=== PATIENT | male | born 1945 | race Caucasian/White ===

== ENCOUNTER 2016-07-28 12:17 | Emergency (ER) | payer MEDICARE, BC ==
[~2016-07-28] VITALS: Ht 193 cm; Wt 93.0 kg
[~2016-07-28 12:17] MED LIST: ASPI81TA82 PO; ATOR20TA PO; CALA240T PO; LEVO.025 PO; LOSA50TA PO; METH500T3 PO; TAB-TAB PO
[2016-07-28 12:21] VITALS: BP 149/85; PULSE 85; RESP 15; TEMP 98.1; O2SAT 97
[2016-07-28] MEDS ORDERED: LEVO25TA4 PO (13:26)
[2016-07-28] MEDS ORDERED: MULT1TAB84 PO (13:26)
[2016-07-28] MEDS ORDERED: ASPI81CH37 CHEW (13:26)
[2016-07-28] MEDS ORDERED: ATOR40TA16 PO (13:26)
[2016-07-28] MEDS ORDERED: LOSA50TA PO (13:26)
--- NOTE | 2016-07-28 13:28 | PD ---
HPI Chief Complaint: Pain: Acute or Chronic Time Seen by Provider: 13:24 Travel History International Travel<30 days: No Contact w/Intl Traveler<30days: No Traveled to known affect area: No History of Present Illness HPI 71-year-old male that presents to the ED for evaluation of right-sided chest pain that he's had for 2 weeks. Per patient he recently traveled to [place] for vacation and they came back here in the past couple days. Per patient the pain started in [place] when he was doing some lifting possibly a cooler. Per patient he is not sure if this caused the pain as he didn't really have any pain during that time until later. He did trouble all the way to [place] and back. She states that the pain is worse with deep breaths as well as with movement. Per patient the pain is burning. He does have a history of lung cancer to the right side with neurosurgery. This was 17 years ago. He takes aspirin. No blood thinners. Pain does not radiate. No rashes. No allergies to medication. Denies any abdominal pain. No nausea or vomiting. No fevers chills or sweats. No cough or runny nose. No injuries that he can think of other than again the heavy lifting from moving. Pain currently is 2 out of 10. Pain somewhat reproducible with touch. PFSH Past Medical History Hx Anticoagulant Therapy: No Arthritis: No Asthma: No Autoimmune Disease: No Blood Disorders: No Anxiety: No Depression: No Heart Rhythm Problems: No Cancer: Yes Cardiovascular Problems: No High Cholesterol: No Chemotherapy: Yes ([place]) Chest Pain: No Congestive Heart Failure: No COPD: No Cerebrovascular Accident: No Diabetes: No Diminished Hearing: No Endocrine: No GERD: No Glaucoma: No Headaches: No Hepatitis: No Hiatal Hernia: No Hypertension: Yes Musculoskeletal: No Neurologic: Yes (BRAIN TUMOR) Psychiatric: No Respiratory: Yes (Lung CA) Myocardial Infarction: No Radiation Therapy: Yes (1999) Seizures: No Sickle Cell Disease: No Sleep Apnea: No Thyroid Disease: No Ulcer: No ?: Not Past Surgical History Abdominal Surgery: Yes (APPENDECTOMY) Cardiac Surgery: Yes (ANGIOPLASTY) Ear Surgery: No Endocrine Surgery: No Eye Surgery: No Genitourinary Surgery: No Gynecologic Surgery: No Joint Replacement: Yes (bilat hips) Oral Surgery: No Pacemaker: No Thoracic Surgery: No Other Surgery: Yes Social History Alcohol Use: Yes Tobacco Use: No Substance Use: No Allergies-Medications (Allergen,Severity, Reaction): Coded Allergies: No Known Allergies (Verified , 07/28/16) Reported Meds & Prescriptions Reported Meds & Active Scripts Active Reported Multivitamin Adults (Multiple Vitamins W/ Minerals) 1 Tab 1 Tab PO DAILY Levothyroxine (Levothyroxine Sodium) 25 Mcg Tab 25 Mcg PO DAILY Atorvastatin (Atorvastatin Calcium) 40 Mg Tab 40 Mg PO HS Losartan (Losartan Potassium) 50 Mg Tab 50 Mg PO DAILY Aspirin Low Dose (Aspirin) 81 Mg Chew 81 Mg CHEW DAILY Review of Systems Except as stated in HPI: all other systems reviewed are Neg Physical Exam Narrative GENERAL: SKIN: Warm and dry. HEAD: Atraumatic. Normocephalic. EYES: Pupils equal and round. No scleral icterus. No injection or drainage. ENT: No nasal bleeding or discharge. Mucous membranes pink and moist. Tongue is midline. No uvula deviation. NECK: Trachea midline. No JVD. CARDIOVASCULAR: Regular rate and rhythm. No murmurs, S3, S4. RESPIRATORY: No accessory muscle use. Clear to auscultation. Breath sounds equal bilaterally. GASTROINTESTINAL: Abdomen soft, non-tender, nondistended. Hepatic and splenic margins not palpable. MUSCULOSKELETAL: Extremities without clubbing, cyanosis, or edema. No obvious deformities. Full range of motion of the upper and lower extremities bilaterally. Some pain is reproducible with touch on the right chest. 2+ pulses bilaterally. NEUROLOGICAL: Awake and alert. No obvious cranial nerve deficits. Motor grossly within normal limits. Five out of 5 muscle strength in the arms and legs. Normal speech. PSYCHIATRIC: Appropriate mood and affect; insight and judgment normal. Data Data Last Documented VS Vital Signs Date Time Temp Pulse Resp B/P Pulse Ox O2 Delivery O2 Flow Rate FiO2 07/28/16 13:27 85 07/28/16 12:21 98.1 15 149/85 97 Orders Electrocardiogram (07/28/16 13:16) Complete Blood Count With Diff (07/28/16 13:16) Basic Metabolic Panel (Bmp) (07/28/16 13:16) Ckmb (Isoenzyme) Profile (07/28/16 13:16) Troponin I (07/28/16 13:16) Prothrombin Time / Inr (Pt) (07/28/16 13:16) Act Partial Throm Time (Ptt) (07/28/16 13:16) D-Dimer (07/28/16 13:16) Magnesium (Mg) (07/28/16 13:16) Chest, Single Ap (07/28/16 13:16) CKMB (07/28/16 13:20) CKMB% (07/28/16 13:20) Ct Pulmonary Angiogram (07/28/16 ) Iohexol 350 Inj (Omnipaque 350 Inj) (07/28/16 16:45) Labs Laboratory Tests Test 07/28/16 13:20 White Blood Count 8.6 TH/MM3 Red Blood Count 4.81 MIL/MM3 Hemoglobin 14.1 GM/DL Hematocrit 42.0 % Mean Corpuscular Volume 87.4 FL Mean Corpuscular Hemoglobin 29.4 PG Mean Corpuscular Hemoglobin 33.7 % Concent Red Cell Distribution Width 13.3 % Platelet Count 377 TH/MM3 Mean Platelet Volume 7.3 FL Neutrophils (%) (Auto) 82.1 % Lymphocytes (%) (Auto) 8.1 % Monocytes (%) (Auto) 8.0 % Eosinophils (%) (Auto) 1.0 % Basophils (%) (Auto) 0.8 % Neutrophils # (Auto) 7.0 TH/MM3 Lymphocytes # (Auto) 0.7 TH/MM3 Monocytes # (Auto) 0.7 TH/MM3 Eosinophils # (Auto) 0.1 TH/MM3 Basophils # (Auto) 0.1 TH/MM3 CBC Comment DIFF FINAL Differential Comment Prothrombin Time 10.7 SEC Prothromb Time International 1.0 RATIO Ratio Activated Partial 30.4 SEC Thromboplast Time D-Dimer Quantitative (PE/DVT) 0.79 MG/L FEU Sodium Level 141 MEQ/L Potassium Level 4.4 MEQ/L Chloride Level 103 MEQ/L Carbon Dioxide Level 26.4 MEQ/L Anion Gap 12 MEQ/L Blood Urea Nitrogen 15 MG/DL Creatinine 0.96 MG/DL Estimat Glomerular Filtration 77 ML/MIN Rate Random Glucose 119 MG/DL Calcium Level 9.1 MG/DL Magnesium Level 2.3 MG/DL Total Creatine Kinase 121 U/L Creatine Kinase MB 1.5 NG/ML Troponin I LESS THAN 0.02 NG/ML MDM Medical Decision Making Medical Screen Exam Complete: Yes Emergency Medical Condition: Yes Medical Record Reviewed: Yes Interpretation(s) Last Impressions Chest X-Ray 07/28/16 1316 Signed Impressions: Service Date/Time: Thursday, July 28, 2016 13:47 - CONCLUSION: 1. 2.8 cm left midlung nodule. Recommend chest CT. 2. Deformity of the right upper hemithorax with adjacent calcification may be the sequela of old trauma. Enrike Banerjee MD CT Angiography 07/28/16 0000 Signed Impressions: Service Date/Time: Thursday, July 28, 2016 16:33 - CONCLUSION: 1. There is no evidence for PE for technique. 2. Left upper lobe mass almost certainly malignant. 3. Tiny right pleural effusion and pericardial effusion. Matteo Awad MD CBC & BMP Diagram 07/28/16 13:20 EKg shows sinus rhythm with no sign of ischemia or arrhythmia read by me and attending. Troponin and CK-MB negative. D-dimer positive. Coags within normal limits. Differential Diagnosis Chest pain versus atypical chest pain versus pulmonary embolism versus costochondritis versus cardiac chest pain versus ACS Narrative Course 71-year-old male that presents to the ED for evaluation of right-sided chest pain. Patient was properly examined and was found to have signs and symptoms of unclear etiology. Patient does have unfortunately risk factors for PE secondary to recent travel in a car as well as history of cancer in that same lung in the past. ACS is less likely but cannot completely be excluded so do recommend during at least one set of troponin. Patient agrees with plan. Labs and imaging ordered. Labs and imaging show what appears to be a mass to the left side. Pleural effusion as well as a small pericardial effusion. This was discussed in my attending Dr. Duenas who was bearable findings and came and evaluated the patient agrees with plan. Patient was told the mass that could be malignant. Patient states that he has good follow-up with Dr. West. At this time recommend close follow-up with him an oncologist as he would likely require oncology workup. Patient agrees and understands. At this time patient will be discharged home with Lortab and diclofenac sodium. Patient will be sent home with all of the report from the blood work as well as the imaging done here. Patient understands that he needs to follow up as soon as possible with PCP or oncologist. See ED for any worsening symptoms. Diagnosis Primary Impression: Right-sided chest pain Additional Impression: Mass of left lung Patient Instructions: General Instructions Additional Instructions: Take medications as prescribed. Follow-up with PCP as soon as possible. See ED for any worsening symptoms. Do not drink or drive while taking pain medication. Apply ice or heat as needed for pain Med/Other Pt SpecificInfo: Prescription(s) given Scripts Diclofenac Sodium DR 75 Mg Tabdr75 Mg PO BID PRN (PAIN SCALE 1 TO 10) #20 TAB Prov:Alexey Wood MD 07/28/16 Hydrocodone-Acetaminophen (Lortab)5-325 Mg Tab1 Tab PO Q6H PRN (PAIN) #15 TAB Prov:Alexey Wood MD 07/28/16 Disposition: 01 DISCHARGE HOME Condition: Andrea Colón Jul 28, 2016 13:28
[2016-07-28 13:38] LABS: CHLORIDE 103 MEQ/L (98-107); POTASSIUM 4.4 MEQ/L (3.5-5.1); SODIUM (NA) 141 MEQ/L (136-145)
[2016-07-28 13:41] LABS: ANION GAP 12 MEQ/L (5-15); BICARBONATE 26.4 MEQ/L (21.0-32.0); BLOOD UREA NITROGEN 15 MG/DL (7-18); MAGNESIUM 2.3 MG/DL (1.5-2.5)
[2016-07-28 13:43] LABS: BASOPHIL # 0.1 TH/MM3 (0-0.2); BASOPHIL % 0.8 % (0.0-2.0); EOSINOPHIL # 0.1 TH/MM3 (0-0.4); HEMO FLAGS DIFF FINAL; LYMPH % 8.1 % (9.0-44.0); LYMPHOCYTE # 0.7 TH/MM3 (1.0-4.8); MEAN CELL VOLUME 87.4 FL (80.0-100.0); MEAN CORPUSCULAR HEMOGLOBIN 29.4 PG (27.0-34.0); MEAN CORPUSCULAR HGB CONC 33.7 % (32.0-36.0); NEUT % 82.1 % (16.0-70.0); PLATELET COUNT 377 TH/MM3 (150-450); RED BLOOD COUNT 4.81 MIL/MM3 (4.50-5.90); RED CELL DISTRIBUTION WIDTH 13.3 % (11.6-17.2); WHITE BLOOD COUNT 8.6 TH/MM3 (4.0-11.0)
[2016-07-28 13:44] LABS: GLOMERULAR FILTRATION RATE 77 ML/MIN (>89)
[2016-07-28 13:47] LABS: CREATINE KINASE 121 U/L (39-308)
[2016-07-28 13:49] LABS: APTT (PATIENT) 30.4 SEC (24.3-30.1); PROTHROMBIN TIME - PATIENT 10.7 SEC (9.8-11.6)
[2016-07-28 14:00] LABS: CKMB 1.5 NG/ML (0.5-3.6)
--- NOTE | 2016-07-28 14:39 | RADHPO ---
EXAM DATE/TIME: 07/28/2016 13:47 [facility] COMPARISON: No previous studies available for comparison. INDICATIONS : Right side chest pain for over one week MEDICAL HISTORY : Right lung cancer. SURGICAL HISTORY : None. ENCOUNTER: Initial ACUITY: 1 week PAIN SCORE: 5/10 LOCATION: Right chest FINDINGS: Single AP view of the chest. Deformity of the upper right hemithorax in the region of the lung apex. Surrounding calcification. May represent old trauma. Faint 2.8 cm nodular density in the left perihil ar midlung. No evidence of pleural effusion or pneumothorax. Cardiomediastinal silhouette within norm al limits. CONCLUSION: 1. 2.8 cm left midlung nodule. Recommend chest CT. 2. Deformity of the right upper hemithorax with adjacent calcification may be the sequela of old trau ma. Enrike Banerjee MD on July 28, 2016 at 14:35 Board Certified Radiologist. This report was verified electronically.
[2016-07-28] MEDS ORDERED: IOHEXOL 350 MG/ML 10 ML VIAL (for RAD DIAG) IV ONE (16:45)
--- NOTE | 2016-07-28 16:55 | RADHPO ---
EXAM DATE/TIME: 07/28/2016 16:33 [facility] COMPARISON: No previous studies available for comparison. INDICATIONS : Right upper chest pain. IV CONTRAST: 65 cc Omnipaque 350 (iohexol) IV RADIATION DOSE: 17.66 CTDIvol (mGy) MEDICAL HISTORY : Carcinoma, lung. Hypertension. SURGICAL HISTORY : Appendectomy. ENCOUNTER: Initial ACUITY: 2 weeks PAIN SCALE: 4/10 LOCATION: Right upper chest TECHNIQUE: Volumetric scanning of the chest was performed using a pulmonary embolism protocol MIP images were re constructed. Using automated exposure control and adjustment of the mA and/or kV according to patien t size, radiation dose was kept as low as reasonably achievable to obtain optimal diagnostic quality images. FINDINGS: There is no evidence for PE for technique. Approximate 1.6 cm spiculated mass is present in the left upper lobe almost certainly malignant. Tiny pericardial effusion is seen with maximum thickness of 1 cm. Small right pleural effusion is present. Extensive calcifications are present in the right u pper chest involving multiple ribs and right scapula with involvement of the soft tissues chronic in nature could be due to prior treatment and/or trauma. There are parenchymal changes in the right apex may be due to post radiation change if the patient has had prior radiation therapy. Coronary artery calcifications are seen typically seen with CAD and need to be evaluated clinically. CONCLUSION: 1. There is no evidence for PE for technique. 2. Left upper lobe mass almost certainly malignant. 3. Tiny right pleural effusion and pericardial effusion. Matteo Awad MD on July 28, 2016 at 16:49 Board Certified Radiologist. This report was verified electronically.
[2016-07-28] MEDS ORDERED: HYDR-3533 PO (17:13)
[2016-07-28] MEDS ORDERED: DICL75TA PO (17:13)
--- NOTE | 2016-07-29 23:08 | EKG ---
Date Performed: 07/28/2016 Time Performed: 12:43:04 PTAGE: 71 years EKG: Sinus rhythm Normal ECG PREVIOUS TRACING : 03/18/2005 09.46 Compared to prior tracing no significant change DOCTOR: Sharif Valdez Interpretating Date/Time 07/29/2016 23:06:44
== END 2016-07-28 17:23 | disposition home or self-care (01) ==
LOC: PHEFT 12:17
DX: R07.89 Other chest pain (principal); R91.8 Other nonspecific abnormal finding of lung field; J90 Pleural effusion, not elsewhere classified; I10 Essential (primary) hypertension; I31.3 Pericardial effusion (noninflammatory); Z79.82 Long term (current) use of aspirin; X50.0XXA Overexertion from strenuous movement or load, initial encounter; X50.9XXA Other and unspecified overexertion or strenuous movements or postures, initial encounter; Y93.E6 Activity, residential relocation; Y92.9 Unspecified place or not applicable; Y99.9 Unspecified external cause status; Z79.899 Other long term (current) drug therapy
CPT/HCPCS: 71010; 71275; 80048; 82550; 82552; 83735; 84484; 85025; 85379; 85610; 85730; 93005; 99285; Q9967

== ENCOUNTER 2016-08-13 07:51 | Day surgery (SDC) | payer MEDICARE, BC ==
[2016-08-13] VITALS (7 sets, daily range): BP systolic 122–165; BP diastolic 69–100; PULSE 83–115; RESP 18–20; TEMP 98.5–98.6; O2SAT 93–98
[~2016-08-13] VITALS: Ht 182.9 cm; Wt 90.9 kg
[~2016-08-13 07:51] MED LIST changes: +ASPI81CH37 CHEW; -ASPI81TA82 PO; -ATOR20TA PO; +ATOR40TA16 PO; -CALA240T PO; +DICL75TA PO; +HYDR-3533 PO; -LEVO.025 PO; +LEVO25TA4 PO; -METH500T3 PO; +MULT1TAB84 PO; -TAB-TAB PO
[2016-08-13] MEDS ORDERED: SODIUM CHLOR 0.9% 1000 ML IV SCH (08:15)
[2016-08-13] MEDS ORDERED: SODIUM CHLORIDE 0.9% FLUSH 10 ML FLUSH IV FLUSH PRN (08:15)
[2016-08-13 08:28] LABS: AUTOMATED NEUTROPHIL # 7.4 TH/MM3 (1.8-7.7); BASOPHIL # 0.1 TH/MM3 (0-0.2); BASOPHIL % 1.4 % (0.0-2.0); EOSINOPHIL # 0.1 TH/MM3 (0-0.4); EOSINOPHIL % 1.5 % (0.0-4.0); HEMATOCRIT 44.8 % (39.0-51.0); HEMO FLAGS DIFF FINAL; LYMPH % 9.2 % (9.0-44.0); LYMPHOCYTE # 0.8 TH/MM3 (1.0-4.8); MEAN CELL VOLUME 87.6 FL (80.0-100.0); MEAN CORPUSCULAR HEMOGLOBIN 29.1 PG (27.0-34.0); MEAN CORPUSCULAR HGB CONC 33.2 % (32.0-36.0); MONO % 7.4 % (0.0-8.0); NEUT % 80.5 % (16.0-70.0); PLATELET COUNT 287 TH/MM3 (150-450); RED BLOOD COUNT 5.12 MIL/MM3 (4.50-5.90); RED CELL DISTRIBUTION WIDTH 13.9 % (11.6-17.2); WHITE BLOOD COUNT 9.2 TH/MM3 (4.0-11.0)
[2016-08-13 08:39] LABS: APTT (PATIENT) 31.3 SEC (24.3-30.1); INTERNATIONAL NORMALIZED RATIO 0.9 RATIO; PROTHROMBIN TIME - PATIENT 10.4 SEC (9.8-11.6)
[2016-08-13] MEDS ORDERED: SODIUM CHLORIDE 0.9% FLUSH 10 ML FLUSH IV FLUSH SCH (09:00)
[2016-08-13] MEDS ORDERED: LIDOCAINE 1%/EPINEPHrine 1:100,000 SOLN 20 ML VIAL ONE (10:11)
[2016-08-13] MEDS ORDERED: fentaNYL CITRATE 250 MCG/5 ML AMP ONE (10:35)
[2016-08-13] MEDS ORDERED: MIDAZOLAM HCL 5 MG/5 ML VIAL ONE (10:35)
--- NOTE | 2016-08-13 12:44 | RADRPT ---
EXAM DATE/TIME: 08/13/2016 12:03 [facility] COMPARISON: No previous studies available for comparison. INDICATIONS : Evaluate for pneumothorax MEDICAL HISTORY : Carcinoma, lung. Hypertension SURGICAL HISTORY : Hip surgery ENCOUNTER: Initial ACUITY: 1 day PAIN SCORE: 0/10 LOCATION: Left chest FINDINGS: A single frontal expiratory view of the chest was performed. Left lung nodule. No pneumothorax. The cardio-mediastinal contours and bronchopulmonary markings are unremarkable for an expiratory exam . Osseous structures are intact. Right apical scarring with calcification and rib deformities. CONCLUSION: Left lung nodule. No pneumothorax. Jose Angel Funes MD on August 13, 2016 at 12:41 Board Certified Radiologist. This report was verified electronically.
--- NOTE | 2016-08-14 07:35 | RADRPT ---
EXAM DATE/TIME: 08/13/2016 10:39 [facility] COMPARISON: No previous studies available for comparison. INDICATIONS : Left lung nodule SEDATION TIME: 30 minutes BIOPSY SITE: Left lung MEDICATION(S): 1.) 4 mg midazolam (Versed) IV 2.) 200 mcg fentanyl (Sublimaze) IV DEVICE(S): 1.) 18 gauge Mahan blunt needle 2.) 20 gauge Temno core biopsy needle MEDICAL HISTORY : Carcinoma, lung. SURGICAL HISTORY : Appendectomy. ENCOUNTER: Initial ACUITY: 1 day PAIN SCORE: 0/10 LOCATION: Left chest A total of one core specimen(s) were obtained and sent to the laboratory for pathologic evaluation. PROCEDURE: 1. CT guided lung biopsy. 2. Conscious sedation with continuous EKG and oximetry monitoring. 3. EKG and oximetry remained stable throughout the procedure. Prior to the procedure informed consent was obtained. Any appropriate prior imaging studies were rev iewed. Using automated exposure control and adjustment of the mA and/or kV according to patient size, radiation dose was kept as low as reasonably achievable to obtain optimal diagnostic quality images. The site was prepped in a sterile fashion. Full sterile technique was used, including cap, mask, kishan rile gloves and gown and a large sterile sheet. Hand hygiene and 2% chlorhexidine and/or betadine/al cohol prep was utilized per protocol for cutaneous antisepsis. The skin and subcutaneous tissues wer e infiltrated with local anesthetic solution. With CT guidance the previously identified target was localized. Biopsy was performed using the presc ribed needle as above. Adequate hemostasis was obtained with compression at the puncture site. Follow-up CT scan reveals no pneumothorax. Conscious sedation was performed with the prescribed dosages and duration as above in the presence of an independent trained radiology nurse to assist in the monitoring of the patient. EKG and oximetry remained stable throughout the procedure. The patient tolerated the procedure well and there were no complications. The patient was sent to Radiology Outpatient Unit in stable condition. CONCLUSION: Uncomplicated CT guided biopsy of left lung nodule. Patient was also scheduled for a right-sided thor acentesis which will be rescheduled next week under ultrasound guidance. Jose Angel Funes MD on August 14, 2016 at 7:33 Board Certified Radiologist. This report was verified electronically.
== END 2016-08-13 14:30 | disposition home or self-care (01) ==
LOC: HRAD 07:51 → HRIP 07:52 → HRAD 14:30
PROVIDERS: ATTEND Internal Medicine Hematology & Oncology
DX: C34.92 Malignant neoplasm of unspecified part of left bronchus or lung (principal); I10 Essential (primary) hypertension
CPT/HCPCS: 32405; 71010; 77012; 85025; 85610; 85730; 88305; 88341; 88342; J2250; J3010; J7030

== ENCOUNTER 2016-08-19 09:48 | Day surgery (SDC) | payer MEDICARE, BC ==
[~2016-08-19 09:48] MED LIST changes: -DICL75TA PO
[2016-08-19 11:33] VITALS: BP 169/90; PULSE 108; RESP 18; TEMP 97; O2SAT 97
[2016-08-19 13:05] VITALS: BP 182/103; PULSE 103; RESP 20; TEMP 98.8; O2SAT 97
[2016-08-19 13:20] VITALS: BP 159/95; PULSE 102; RESP 20; O2SAT 98
--- NOTE | 2016-08-19 13:32 | RADRPT ---
EXAM DATE/TIME: 08/19/2016 13:13 [facility] COMPARISON: CHEST SINGLE AP, July 28, 2016, 13:47. CHEST EXPIRATION ONLY, August 13, 2016, 12:03. INDICATIONS : Post right sided thoracentesis. MEDICAL HISTORY : Carcinoma, lung. Hypertension. SURGICAL HISTORY : None. ENCOUNTER: Initial ACUITY: 1 day PAIN SCORE: 0/10 LOCATION: Bilateral chest FINDINGS: Portable upright expiratory view of the chest demonstrates a normal-sized cardiac silhouette. No pneu mothorax is identified following recent right thoracentesis. There is elevation of the right hemidiap hragm. Subtle opacity is present in the left midlung zone corresponding to a known pulmonary nodule. No residual pleural effusion is seen. Ossification along the right chest wall is stable. CONCLUSION: 1. No pneumothorax following recent right thoracentesis. No residual pleural fluid is seen. 2. Stable nodule in the left midlung zone. Ramón Robin MD on August 19, 2016 at 13:29 Board Certified Radiologist. This report was verified electronically.
[2016-08-19 14:01] LABS: TOTAL PROTEIN,PLEURAL FLUID 5.1 GM/DL
[2016-08-19 14:13] LABS: PLEURAL FLUID LYMPHS 95 %
--- NOTE | 2016-08-19 14:20 | RADRPT ---
EXAM DATE/TIME: 08/19/2016 11:31 [facility] COMPARISON: CHEST EXPIRATION ONLY, August 19, 2016, 13:13. INDICATIONS : Right pleural effusion. MEDICAL HISTORY : Hypercholesterolemia. Hypertension. Lung Cancer. Brain cancer. SURGICAL HISTORY : Tonsillectomy. Total hip replacement. Sterio tactic brain radiation. ENCOUNTER: Initial ACUITY: 1 month PAIN SCORE: 2/10 LOCATION: Right chest FLUID: Total volume of 500 cc of clear, yellow fluid was removed. Fluid was sent to lab for ordered studies. TECHNIQUE: 1. Ultrasound guidance for thoracentesis. 2. Thoracentesis. The risks, benefits, and alternatives to ultrasound guided thoracentesis were explained to the patien t in lay simple terms, including the risk of bleeding and infection. Written and verbal informed con sent was obtained. Appropriate area for thoracentesis was marked under ultrasound guidance with the patient in the uprig ht position. Overlying skin was prepped and draped in the usual sterile fashion and with local anest hetic, a dermatotomy was made with an 11 blade scalpel. A 6 Norwegian thoracentesis catheter was placed in the pleural space and fluid was removed. Catheter was then removed and a sterile dressing applie d. There were no immediate complications. The patient tolerated the procedure well and the left the ultrasound suite in stable condition. Chest radiograph is to be obtained. CONCLUSION: Uncomplicated ultrasound guided thoracentesis. Sample was saved and sent to lab for evaluation. Ramón Robin MD on August 19, 2016 at 14:18 Board Certified Radiologist. This report was verified electronically.
== END 2016-08-19 13:40 | disposition home or self-care (01) ==
LOC: HRAD 09:48 → HRIP 09:50 → HRAD 13:40
PROVIDERS: ATTEND Internal Medicine Hematology & Oncology
DX: J90 Pleural effusion, not elsewhere classified (principal); I10 Essential (primary) hypertension; E78.00 Pure hypercholesterolemia, unspecified; Z85.118 Personal history of other malignant neoplasm of bronchus and lung
CPT/HCPCS: 32555; 71010; 82945; 83615; 84157; 87070; 87205; 89051; C1729; 88112; 88305